=== PATIENT | male | born 1980 | race Caucasian/White ===

== ENCOUNTER 2019-03-18 19:25 | Emergency (ER) | payer OTHER ==
[2019-03-18 21:03] LABS: Alcohol 10 mg/dL (<10)
[2019-03-18] MEDS ORDERED: NS 0.9% 1000 ML** 1,000 ML IV ONE (21:49)
[2019-03-18] MEDS ORDERED: Thiamine TAB* 100 MG TAB PO ONE (21:49)
[2019-03-18] MEDS ORDERED: Ondansetron INJ* 2 MG/ML VIAL IV ONE (21:49)
--- NOTE | 2019-03-18 22:00 | ED ---
Substance Abuse/Use - HPI Summary HPI Summary: Pt is a 38 y/o male who presents to the ED requesting detox. He has been shit- faced for the past month straight. Pt usually drinks 10-12 Natty Daddys daily, which are 24 oz of 8% ABV beer. He sometimes drinks a pint of hard liquor as well. His last drink was around 17:00 today. He states that he would like to quit drinking since he cannot be productive and feels addictive. As per nurses note, he is about to go into alcohol withdrawal. Pt states that he drinks to get rid of the noises in my head. However, he denies any visual hallucinations. Pt currently has N/V since this morning. He also c/o suprapubic and testicular pain, rated a 9/10 in severity, that is made worse with urinating and BMs for the past month. Pt is currently living in the [facility] and does not have a job. Pt also chews tobacco, and uses marijuana daily. FHx alcoholism. - History Of Current Complaint Chief Complaint: EDDetoxRequest Stated Complaint: DETOX/MHE PER PT Time Seen by Provider: 03/18/19 21:51 Hx Obtained From: Patient Onset/Duration of Drug/ETOH Abuse: Years Ingestion History: Type/Name Of Drug - ETOH Overdose Characteristics: Oral Timing Of Abuse: Daily Alleviating Factor(s): Nothing Associated Signs And Symptoms: Other: - abdominal pain Related Hx: Drug/Alcohol Last Used @ - 17:00 - Allergies/Home Medications Allergies/Adverse Reactions: Allergies Allergy/AdvReac Type Severity Reaction Status Date / Time No Known Allergies Allergy Verified 03/18/19 19:40 PMH/Surg Hx/FS Hx/Imm Hx Endocrine/Hematology History: Denies: Hx Diabetes Cardiovascular History: Denies: Hx Hypertension Psychiatric History: Reports: Hx Substance Abuse - ETOH, MJ Infectious Disease History: No Infectious Disease History: Denies: Traveled Outside the [place] in Last 30 Days - Family History Known Family History: Positive: Other - alcoholism Negative: Hypertension, Diabetes - Social History Alcohol Use: Daily Hx Substance Use: Yes Substance Use Type: Reports: Marijuana Substance Use Comment - Amount & Last Used: daily Hx Tobacco Use: Yes Smoking Status (MU): Current Every Day Smoker Do You Chew or Dip Tobacco: Yes Review of Systems Positive: Abdominal Pain - suprapubic, Vomiting, Nausea Positive: pain - testicular Negative: Other - visual hallucinations All Other Systems Reviewed And Are Negative: Yes Physical Exam - Summary Physical Exam Summary: Appearance: well appearing, no pain distress, disheveled Skin: warm, dry, reflects adequate perfusion Head/face: normal Eyes: EOMI, FELICIANO ENT: mucous membranes moist Neck: supple, non-tender Respiratory: CTA, breath sounds present Cardiovascular: RRR, pulses symmetrical, mildly hypertensive Abdomen: non-tender, soft Bowel Sounds: present Musculoskeletal: normal, strength/ROM intact Neuro: normal, sensory motor intact, A&Ox3, no tremor, cognitively normal Triage Information Reviewed: Yes Vital Signs On Initial Exam: Initial Vitals Temp Pulse Resp BP Pulse Ox 98.1 F 71 18 159/111 98 03/18/19 19:37 03/18/19 19:37 03/18/19 19:37 03/18/19 19:37 03/18/19 19:37 Vital Signs Reviewed: Yes Diagnostics - Vital Signs Vital Signs Temp Pulse Resp BP Pulse Ox 03/18/19 21:37 98.4 F 81 18 179/109 99 03/18/19 19:37 98.1 F 71 18 159/111 98 - Laboratory Lab Results: Lab Results 03/18/19 Range/Units 20:18 Serum Alcohol 10 (<10) mg/dL Result Diagrams: 03/18/19 20:11 03/18/19 20:11 Lab Statement: Any lab studies that have been ordered have been reviewed, and results considered in the medical decision making process. - EKG 22:23 Cardiac Rate: NL - 62 bpm EKG Rhythm: Sinus Rhythm ST Segment: Normal Summary of EKG Findings: Nl axis, nl intervals Re-Evaluation - Re-Evaluation First Eval Re-Evaluation Time: 22:30 Change: Unchanged Comment: Pt is medically cleared for a MHE. Course/Dx - Course Course Of Treatment: Homeless individual presents asking for detox. He reports having drank just previous to coming here. His alcohol however was only 10. He was alert and showed no evidence of withdrawal. He then decided that he was having mental health issues and requested a mental health evaluation. Mental health evaluation was performed in the wish to discharge the patient with outpatient follow-up. He was also given outpatient referral to [facility] and also the [place] which can help with his alcoholism. He was explained that there are no inpatient detox opportunities here in the if he would like something like this he would need to go to [place]. - Diagnoses Differential Diagnosis/HQI/PQRI: Positive: Alcohol Abuse, Depression, Metabolic Disorder Provider Diagnoses: Alcoholism, Elevated LFTs, Substance induced mood disorder - Physician Notifications Discussed Care Of Patient With: ALE [employer] Drawer Time Discussed With Above Provider: 23:00 Instructed by Provider To: Other - Pt is not suicidal. Discharge - Sign-Out/Discharge Documenting (check all that apply): Patient Departure - Discharge Patient Received Moderate/Deep Sedation with Procedure: No - Discharge Plan Condition: Improved Disposition: HOME Patient Education Materials: Mood Disorders (ED), Polysubstance Abuse (ED) Referrals: No Primary Care Phys,NOPCP [Primary Care Provider] - - Billing Disposition and Condition Condition: IMPROVED Disposition: Home - Attestation Statements Document Initiated by Kin: Yes Documenting Scribe: Renuka Tinajero Provider For Whom Kin is Documenting (Include Credential): Mayank Dudley MD Scribe Attestation: Renuka Farfan scribed for Mayank Dudley MD on 03/19/19 at 0630. Scribe Documentation Reviewed: Yes Provider Attestation: The documentation as recorded by the Renuka falk accurately reflects the service I personally performed and the decisions made by , Mayank Dudley MD Status of Scribe Document: Viewed
[2019-03-18 22:29] LABS: ABS Basophils 0 10^3/ul (0-0.2); ABS Eosinophils 0 10^3/ul (0-0.6); ABS Lymphocytes 1.2 10^3/ul (1.0-4.8); ABS Monocytes 0.7 10^3/ul (0-0.8); ABS Neutrophils 6.3 10^3/ul (1.5-7.7); ABS Nucleated RBC 0 10^3/ul; Eosinophil % 0.3 %; Hematocrit 46 % (42-52); Hemoglobin 15.5 g/dL (14.0-18.0); Lymphocyte % 14.3 %; Mean Corpuscular HGB Conc 34 g/dL (31-36); Mean Corpuscular Hemoglobin 32 pg (27-31); Mean Corpuscular Volume 95 fL (80-94); Mean Platelet Volume 8.4 fL (7.4-10.4); Nucleated Red Blood Cells % 0.1; Platelet Count 196 10^3/uL (150-450); Red Blood Count 4.85 10^6 /uL (4.18-5.48); Red Cell Distribution Width 14 % (10.5-15); White Blood Count 8.2 10^3/uL (3.5-10.8)
[2019-03-18 22:39] LABS: Albumin/Globulin Ratio 1.8 (1-3); BUN/Creatinine Ratio 14.3 (8-20); Calcium 9.8 mg/dL (8.6-10.3); EGFR African American 137.6 (>60); EGFR Non-African American 113.7 (>60); Globulin 2.8 g/dL (2-4); Potassium 3.8 mmol/L (3.5-5.0); Total Bilirubin 1.1 mg/dL (0.2-1.0); Total Protein 7.8 g/dL (6.4-8.9)
[2019-03-18 23:19] VITALS: BP 147/90
== END 2019-03-19 00:21 | disposition home or self-care (01) ==
LOC: ED 19:25
DX: F10.20 Alcohol dependence, uncomplicated (principal); F10.14 Alcohol abuse with alcohol-induced mood disorder; R94.5 Abnormal results of liver function studies
CPT/HCPCS: 36415; 80053; 80320; 82977; 83690; 85025; 86703; 93005; 96361; 96372; 99284; A9270-GY; G0480; J2405